=== PATIENT | female | born 1980 | race Hispanic/Latino ===

== ENCOUNTER 2023-09-09 | Inpatient (IN) | payer OTHER ==
[2023-09-09 01:30] VITALS: BP 116/75
[2023-09-09 01:41] LABS: HEMATOCRIT 35.4 % (35.0-50.0); HEMOGLOBIN 11.6 g/dL (12.0-18.0); MCH 27.6 (27-36); MCHC 32.8 g/dl (30-36); RBC 4.22 M/ul (4.3-5.7); RDW 15.7 (10.5-15.0)
--- NOTE | 2023-09-09 01:56 | NUR ---
COVID 19 SWAB DONE TO BOTH NARES AND SENT TO IN HOUSE LAB.
[2023-09-09 02:03] LABS: AMPHETAMINES, UR NEGATIVE (NEGATIVE); BARBITURATES, UR NEGATIVE (NEGATIVE); BENZODIAZEPINES, UR NEGATIVE (NEGATIVE); BUPRENORPHINE,UR NEGATIVE (NEGATIVE); COCAINE, UR NEGATIVE (NEGATIVE); MARIJUANA (THC), UR NEGATIVE (NEGATIVE); MDMA, UR NEGATIVE (NEGATIVE); METHADONE, UR NEGATIVE (NEGATIVE); METHAMPHETAMINE, UR NEGATIVE (NEGATIVE); OPIATES, UR NEGATIVE (NEGATIVE); OXYCODONE, UR NEGATIVE (NEGATIVE); PHENCYCLIDINE, UR NEGATIVE (NEGATIVE); TRICYCLIC ANTIDEPRESSANT, UR NEGATIVE (NEGATIVE)
[2023-09-09 02:10] LABS: ABO O; ANTIBODY SCREEN NEGATIVE; RH POSITIVE
[2023-09-09 02:35] LABS: INFLUENZA B NAA NEGATIVE (NEGATIVE); RESPIRATORY SYNCYTIAL VIR NAA NEGATIVE (NEGATIVE)
--- NOTE | 2023-09-09 08:47 | PR ---
[facility] [address] [facility] [place], [place] [address] Signed Progress Notes IP Datetime Report Generated by CPN: 09/09/2023 08:47 PROGRESS NOTES: [id number] Impression: Normal Progression of Labor Procedures: Artificial ROM Plan: Continue Present Management VITAL SIGNS: [id number] Vital Signs: Reviewed; Within Normal Limits EXAM: [id number] Dilatation: 1.0 Effacement: 50 Station: -3 Contractions: irregular MEMBRANES: [id number] Comments: Progressing. Will continue. FETUS A: [id number] FHR Baseline: 130 Variability: Moderate 6-25bpm Accelerations: 15X15 FHR Category: Category II Presentation: Vertex FETUS B: [id number] Signing Physician: Consuelo Manuel MD Copies: ~ *Electronically Signed* 09/09/23 0847 CONSUELO MANUEL MD PATIENT NAME: RENO ACEVEDO PROGRESS NOTE DATE OF : 82 PHYSICIAN: CONSUELO MANUEL MD RPT #: [id number] REPORT IS CONFIDENTIAL AND NOT TO BE RELEASED WITHOUT AUTHORIZATION
[2023-09-10 05:31] LABS: HEMATOCRIT 30.7 % (35.0-50.0); HEMOGLOBIN 10.2 g/dL (12.0-18.0); MCH 27.7 (27-36); MCHC 33.1 g/dl (30-36); MCV 83.5 fl (81-99); RBC 3.67 M/ul (4.3-5.7); RDW 15.5 (10.5-15.0)
--- NOTE | 2023-09-10 07:16 | PR ---
[facility] [address] [place], [place] [address] Signed PP Progress Notes Datetime Report Generated by CPN: 09/10/2023 07:16 SUBJECTIVE: [id number] Pain: Within Normal Limits Vital Signs: [id number] Vital Signs: Reviewed; Within Normal Limits Cardiovascular: Not Done Respiratory: Not Done Abdomen/Uterus: Abnormal Lochia: Normal Vulva/Perineum: Abnormal Breasts: Not Done CVA Tenderness: Not Done Extremities: Normal Incision: Not Applicable Progress: Abnormal Exam Comments: Fundus firm, NT @ U-2. Labia still quite edematous. H/H 10.2/30.7, WBC 14.7k, plat 254k IMPRESSION/PLAN/PROCEDURES: [id number] Impression: Normal Progression; Difficulties Other Impression: Labia still very edematous Plan: Continue Present Management Progress Notes: Doing well overall but still very edematous. Discouraged sitting or reclining as this will contribute to further swelling. Breast feeding not happening. She is encouraged to pump and try breast feeding before using the bottle. Signing Physician: Consuelo Manuel MD Copies: ~ *Electronically Signed* 09/10/23 07 CONSUELO MANUEL MD PATIENT NAME: RENO ACEVEDO PROGRESS NOTE DATE OF : 82 PHYSICIAN: CONSUELO MANUEL MD RPT #: [id number] REPORT IS CONFIDENTIAL AND NOT TO BE RELEASED WITHOUT AUTHORIZATION
--- NOTE | 2023-09-11 09:31 | PR ---
[facility] [address] [facility] [place], [place] [address] Signed PP Progress Notes Datetime Report Generated by CPN: 09/11/2023 09:31 SUBJECTIVE: [id number] Pain: Within Normal Limits Nausea/Vomiting: Denies Flatus: Yes Bowel Movement: No Vital Signs: [id number] Vital Signs: Reviewed; Within Normal Limits EXAM: Ongoing Cardiovascular: Not Done Respiratory: Not Done Abdomen/Uterus: Normal Lochia: Normal Vulva/Perineum: Abnormal Breasts: Not Done CVA Tenderness: Not Done Extremities: Normal Incision: Not Applicable Progress: Abnormal Exam Comments: Fundus firm, below umbilicus, appropriate TTP. Labia still swollen, left greater than right. Nursing clerk manager reports greatly improved. IMPRESSION/PLAN/PROCEDURES: [id number] Impression: Normal Progression; Difficulties Other Impression: Labia still very edematous Plan: Discharge Procedures: None Progress Notes: Doing well. Meeting all hospital milestones. difficulties continue. She will continue use of breast pump and formula supplementation. Discharge home today. Signing Physician: Consuelo Manuel MD *Electronically Signed* 09/11/23 0931 CONSUELO MANUEL MD PATIENT NAME: RENO ACEVEDO PROGRESS NOTE DATE OF : 82 PHYSICIAN: CONSUELO MANUEL MD RPT #: [id number] REPORT IS CONFIDENTIAL AND NOT TO BE RELEASED WITHOUT AUTHORIZATION
== END 2023-09-11 13:15 | disposition home or self-care (01) | DRG 807 ==
LOC: FBC
PROVIDERS: ADMIT Obstetrics & Gynecology; ATTEND Obstetrics & Gynecology
PROC: 10E0XZZ Delivery of Products of Conception, External Approach (ICD-10-PCS; principal; 2023-09-09)
PROC: 0KQM0ZZ Repair Perineum Muscle, Open Approach (ICD-10-PCS; 2023-09-09)
PROC: 10907ZC Drainage of Amniotic Fluid, Therapeutic from Products of Conception, Via Natural or Artificial Opening (ICD-10-PCS; 2023-09-09)
PROC: 3E0R3BZ Introduction of Anesthetic Agent into Spinal Canal, Percutaneous Approach (ICD-10-PCS; 2023-09-09)
PROC: 00HU33Z Insertion of Infusion Device into Spinal Canal, Percutaneous Approach (ICD-10-PCS; 2023-09-09)
DX: O24.429 Gestational diabetes mellitus in childbirth, unspecified control (principal); Z37.0 Single live birth; O69.81X0 Labor and delivery complicated by cord around neck, without compression, not applicable or unspecified; O77.0 Labor and delivery complicated by meconium in amniotic fluid; Z3A.39 39 weeks gestation of pregnancy; O70.1 Second degree perineal laceration during delivery; Z87.891 Personal history of nicotine dependence
CPT/HCPCS: 01960; 36415; 85027; 86850; 86900; 86901; 87502; A9270; C9803; J2590; J7121; U0002

== ENCOUNTER 2024-01-04 22:40 | Emergency (ER) | payer OTHER ==
[~2024-01-04] VITALS: Ht 154.9 cm; Wt 72.6 kg
[2024-01-04 22:59] LABS: BASOPHILS 0.5 % (0-2); EOSINOPHILS 1.1 % (0-6); HEMATOCRIT 41.3 % (35.0-50.0); HEMOGLOBIN 13.6 g/dL (12.0-18.0); MCH 28.6 (27-36); MCHC 32.8 g/dl (30-36); MONOCYTES 5.8 % (0-12); NEUTROPHILS 64.6 % (39-80); PLATELET COUNT 310 K/uL (140-440); RBC 4.75 M/ul (4.3-5.7)
[2024-01-04 23:14] LABS: ALBUMIN 3.6 g/dL (3.4-5.0); ALBUMIN/GLOBULIN RATIO 0.92 (1.1-2.4); ANION GAP 13.4 (7-21); BILIRUBIN, TOTAL 0.3 ng/dL (0.2-1.0); BUN/CREATININE RATIO 12.64 (6.0-28.6); CALCIUM 8.6 mg/dL (8.5-10.1); CREATININE, SERUM 0.87 mg/dL (0.55-1.02); POTASSIUM 3.4 mmol/L (3.5-5.1); PROTEIN, TOTAL 7.5 g/dL (6.4-8.2)
[2024-01-04 23:38] LABS: BILIRUBIN, URINE NEGATIVE (negative); BLOOD/HGB, URINE MODERATE (Negative); KETONE, URINE SMALL (Negative); LEUK ESTERASE, URINE NEGATIVE (negative); NITRITE, URINE NEGATIVE (negative)
[2024-01-04 23:43] LABS: EPITHELIAL CELLS, URINE SQUAMOUS 2+ /lpf (0-1+)
[2024-01-04 23:44] LABS: BACTERIA, URINE RARE /hpf (negative); CASTS, URINE NONE SEEN \\lpf; CRYSTALS, URINE NONE SEEN (0-1+); REFLEX CULTURE, URINE No (No)
[2024-01-04 23:54] LABS: INFLUENZA B NAA NEGATIVE (NEGATIVE); RESPIRATORY SYNCYTIAL VIR NAA NEGATIVE (NEGATIVE)
[2024-01-05] MEDS ORDERED: BUTALB-ACETAMI1 EAC2 PO (00:17)
[2024-01-05 00:23] VITALS: BP 118/81
--- NOTE | 2024-01-05 07:47 | EKG ---
[facility] [address] [facility] [place], [place] [address] Signed Normal sinus rhythm Low voltage QRS Borderline ECG No previous ECGs available Confirmed by HAY DOVE MD ([id number]) on 01/05/2024 7:46:54 AM Electronically Signed By: HAY DOVE 01/05/24 0747 PATIENT NAME: RENO ACEVEDO Electrocardiogram DATE OF : 82 PHYSICIAN: HAY DOVE REPORT #: [id number] REPORT IS CONFIDENTIAL AND NOT TO BE RELEASED WITHOUT AUTHORIZATION
== END 2024-01-05 00:26 | disposition home or self-care (01) ==
LOC: ED 22:40
PROVIDERS: Family Medicine
DX: G44.209 Tension-type headache, unspecified, not intractable (principal); Z20.822 Contact with and (suspected) exposure to COVID-19
CPT/HCPCS: 36415; 70450; 80053; 81001; 85025; 87502; 93005; 93010; J1885; U0002

== ENCOUNTER 2025-03-27 12:35 | Emergency (ER) | payer OTHER ==
[~2025-03-27] VITALS: Ht 154.9 cm; Wt 69.7 kg
[~2025-03-27 12:35] MED LIST: BUTALB-ACETAMI1 EAC2 PO; HYDROCODON-ACE1 EA10 PO
[2025-03-27 14:11] LABS: BASOPHILS 0.7 % (0-2); EOSINOPHILS 0.5 % (0-6); HEMATOCRIT 40.7 % (35.0-50.0); HEMOGLOBIN 14.2 g/dL (12.0-18.0); LYMPHOCYTES 23.7 % (24-44); MCH 29.7 (27-36); MCV 84.7 fl (81-99); MONOCYTES 4.8 % (0-12); NEUTROPHILS 70.3 % (39-80); PLATELET COUNT 320 K/uL (140-440); RDW 13.8 (10.5-15.0)
[2025-03-27 14:29] LABS: ALBUMIN 3.8 g/dL (3.4-5.0); ALBUMIN/GLOBULIN RATIO 0.97 (1.1-2.4); ANION GAP 11.5 (7-21); BILIRUBIN, TOTAL 0.4 mg/dL (0.2-1.0); BUN/CREATININE RATIO 13.63 (6.0-28.6); CALCIUM 8.6 mg/dL (8.5-10.1); CREATININE, SERUM 0.88 mg/dL (0.55-1.02); POTASSIUM 3.5 mmol/L (3.5-5.1); PROTEIN, TOTAL 7.7 g/dL (6.4-8.2)
[2025-03-27] MEDS ORDERED: CLINDAMYCIN HC300 MG PO (15:12)
[2025-03-27] MEDS ORDERED: METRONIDAZOLE500 MG PO (17:55)
[2025-03-27] MEDS ORDERED: PENICILLIN V P500 MG PO (17:55)
[2025-03-27 18:27] VITALS: BP 111/81
== END 2025-03-27 18:28 | disposition home or self-care (01) ==
LOC: ED 12:35
PROVIDERS: Family Medicine
DX: L02.01 Cutaneous abscess of face (principal)
CPT/HCPCS: 36415; 70487; 80053; 84703; 85025; 99284-25; Q9967